=== PATIENT | male | born 1955 ===

== ENCOUNTER 2018-10-17 14:49 | Outpatient (CLI) | payer MEDICARE, MEDICAID | END 2018-10-17 14:50 | disposition home or self-care (01) | LOC: C.USIC 14:50 ==

== ENCOUNTER 2018-12-13 10:59 | Outpatient (CLI) | payer MEDICARE, MEDICAID | END 2018-12-13 11:00 | disposition home or self-care (01) | LOC: C.RADH 10:59 | DX: N20.0 Calculus of kidney (principal) ==